=== PATIENT | female | born 1940 | race Caucasian/White ===

== ENCOUNTER 2021-06-02 20:29 | Inpatient (IN) | payer MEDICARE, OTHER ==
[~2021-06-02] VITALS: Ht 154.9 cm; Wt 73.1 kg
[~2021-06-02 20:29] MED LIST: ANTIVERT25 MG PO; ATIVAN1 MG PO; BIOTIN5000 MCG PO; CERTAGEN1 EACH PO; COLACE100 MG PO; FEOSOL325 MG PO; MELOXICAM15 MG PO; MOBIC7.5 MG PO; PERCOCET 5-3251 EACH PO; PROTONIX 40MG T40 MG PO; PROZAC40 MG PO; SYNTHROID88 MCG PO; TRAZODONE 100M100 MG PO; VITAMIN D1000 UNI1 PO; XARELTO10 MG PO; ZOFRAN4 MG SL
[2021-06-02 22:16] LABS: ALBUMIN 3.3 g/dL (3.4-5.0); BILIRUBIN - TOTAL 0.4 mg/dL (0.2-1.0); BUN/CREAT RATIO (CALC) 17.8 RATIO; CREATININE 0.73 mg/dL (0.51-0.95); GLOBULIN (CALCULATION) 3.8 g/dL; POTASSIUM 3.5 mmol/L (3.5-5.1); TOTAL PROTEIN 7.1 g/dL (6.4-8.2)
[2021-06-02 22:26] LABS: BASOPHIL 0.6 % (0-2); EOSINOPHIL 0.6 % (0-7); HCT 40.7 % (37.0-47.0); HGB 13.3 g/dl (12.5-16.0); LYMPHOCYTE 16.3 % (15-48); MCH 28.5 pg (25.0-31.0); MCHC 32.7 g/dL (32.0-36.0); MCV 87.3 fL (78.0-100.0); MONOCYTE 8.6 % (0-12); MPV 10.8 fL (6.0-9.5); NEUTROPHIL 73.1 % (41-80); NRBC 0; PLT 201 K/uL (150-400); RBC 4.66 M/uL (4.20-5.40); RDW 12.8 % (11.5-14.0); WBC 7.2 K/uL (4.0-10.5)
[2021-06-02 23:49] LABS: BILIRUBIN NEGATIVE (NEGATIVE); BLOOD NEGATIVE Ery/uL (NEGATIVE); CLARITY CLEAR (CLEAR); COLOR YELLOW (YELLOW); GLUCOSE (U) NORMAL (NORMAL); LEUKOCYTES TRACE Leu/uL (NEGATIVE); NITRITE NEGATIVE (NEGATIVE); PROTEIN NEGATIVE (NEGATIVE); SPECIFIC GRAVITY 1.015 (1.001-1.030)
[2021-06-02 23:54] LABS: BACTERIA TRACE; RENAL EPITHELIAL CELLS RARE; SQUAMOUS EPITHELIAL CELLS RARE; TRANSITIONAL EPITHELIAL CELLS RARE; URINARY WBC RARE
[2021-06-04] MEDS ORDERED: DEXAMETHASONE 2M2 MG PO (07:52)
--- NOTE | 2021-06-04 09:50 | NUR ---
PT. IS COVID POS. DR. MCDONALD HAS ORDERED HOME O2. SUBMITTED INFORMATION TO [facility] FOR PORTABLE TANK AND HOME O2. ADVISED LAURA HERMAN THAT [facility] WILL DELIVER O2.
== END 2021-06-04 14:31 | disposition home or self-care (01) | DRG 177 ==
LOC: FER 20:29 → FMS 06-03 03:31
PROVIDERS: Emergency Medicine; ADMIT Internal Medicine
PROC: XW033E5 Introduction of Remdesivir Anti-infective into Peripheral Vein, Percutaneous Approach, New Technology Group 5 (ICD-10-PCS; principal; 2021-06-03)
PROC: 8E0ZXY6 Isolation (ICD-10-PCS; 2021-06-03)
DX: U07.1 COVID-19 (principal); J12.82 Pneumonia due to coronavirus disease 2019; J96.01 Acute respiratory failure with hypoxia; M48.56XA Collapsed vertebra, not elsewhere classified, lumbar region, initial encounter for fracture; Z96.652 Presence of left artificial knee joint; E78.5 Hyperlipidemia, unspecified; E03.9 Hypothyroidism, unspecified; M19.90 Unspecified osteoarthritis, unspecified site; F32.9 Major depressive disorder, single episode, unspecified; D64.9 Anemia, unspecified; K44.9 Diaphragmatic hernia without obstruction or gangrene; Z88.2 Allergy status to sulfonamides; Z90.49 Acquired absence of other specified parts of digestive tract; Z90.710 Acquired absence of both cervix and uterus; Z90.89 Acquired absence of other organs; Z98.890 Other specified postprocedural states; Z98.41 Cataract extraction status, right eye; Z98.42 Cataract extraction status, left eye
CPT/HCPCS: 36415; 36600; 71045; 71275; 80053; 81001; 82803; 84484; 85025; 93005; 94010; 94640; 94667; 94668; C9399; J0360; J0456; J1650; J2405; J2930; J3490; J7030; J7050; J8540; Q9967; U0002